=== PATIENT | female | born 1945 | race Hispanic/Latino ===

== ENCOUNTER 2017-10-29 13:38 | Inpatient (IN) | payer MEDICARE ==
[~2017-10-29] VITALS: Ht 154.9 cm; Wt 101.7 kg
[2017-10-29] MEDS ORDERED: IPRATROPIUM/ALBUTEROL SULFATE 3 ML SOLUTION IH ONE (14:23)
[2017-10-29] MEDS ORDERED: METHYLPREDNISOLONE SOD SUCC 40MG/ML 1ML ONE (14:24)
[2017-10-29 14:27] LABS: BASOPHILS % (AUTO) 0.7 % (0.0-5.0); EOSINOPHILS % (AUTO) 1.4 % (0.0-8.0); HEMATOCRIT 36.5 % (36-48); LYMPHOCYTES % (AUTO) 9.6 % (21.0-51.0); MEAN CORPUSCULAR HEMOGLOBIN 27.3 pg (27.0-33.0); MEAN CORPUSCULAR HGB CONC 32.8 g/dL (32.0-36.0); MEAN CORPUSCULAR VOLUME 83.1 fL (79-99); MONOCYTES % (AUTO) 6.8 % (3.0-13.0); NEUTROPHILS % (AUTO) 81.5 % (40.0-77.0); PLATELET COUNT (AUTO) 244 K/uL (130-400); RED BLOOD CELL COUNT(AUTO) 4.39 MIL/uL (4.00-5.50); RED CELL DISTRIBUTION WIDTH 14.9 % (11.0-15.5)
[2017-10-29 14:40] LABS: CREATININE 0.9 mg/dL (0.5-1.5); POTASSIUM 4.1 mmol/L (3.5-5.1)
[2017-10-29 14:52] LABS: RAPID GROUP A STREP NEGATIVE (NEGATIVE)
[2017-10-29 14:55] LABS: ALBUMIN 3.6 g/dL (3.5-5.0); BILIRUBIN,TOTAL 0.4 mg/dL (0.2-1.0); CREATINE KINASE MB 1.5 ng/mL (0.5-3.6); TOTAL PROTEIN, SERUM 7.8 g/dL (6.0-8.3)
[2017-10-29 15:35] LABS: APPEARANCE,URINE CLEAR (CLEAR); BILIRUBIN,URINE NEGATIVE (NEGATIVE); COLOR,URINE YELLOW (YELLOW); GLUCOSE, URINE (UA) NEGATIVE (NEGATIVE); KETONES,URINE NEGATIVE (NEGATIVE); LEUKOCYTE ESTERASE ,URINE NEGATIVE (NEGATIVE); NITRATE,URINE NEGATIVE (NEGATIVE); OCCULT BLOOD,URINE NEGATIVE (NEGATIVE); PROTEIN,URINE NEGATIVE (NEGATIVE); UROBILINOGEN,URINE 0.2 mg/dL (0.2-1.0)
[2017-10-29] MEDS ORDERED: ALBUTEROL SULFATE 0.083% 2.5 MG/3 ML INH IH ONE (17:19)
[2017-10-29 19:10] VITALS: BP 124/72
[2017-10-29] MEDS: AZITHROMYCIN 500MG+NS 250ML 250 ML IV SCH (21:49)
[2017-10-29] MEDS: METHYLPREDNISOLONE SOD SUCC 125MG/2ML VIAL IVP SCH (21:49)
[2017-10-29] MEDS: IPRATROPIUM/ALBUTEROL SULFATE 3 ML SOLUTION IH SCH (23:15)
[2017-10-29 23:47] VITALS: BP 149/63
[2017-10-30] VITALS (7 sets, daily range): BP systolic 136–178; BP diastolic 61–94
[2017-10-30] MEDS ORDERED: POTASSIUM CHLORIDE 10% ELIXIR 20 MEQ/15 ML UDCUP PO PRN (00:45)
[2017-10-30] MEDS ORDERED: POTASSIUM CHLORIDE 20 MEQ ERTAB PO PRN (00:45)
[2017-10-30] MEDS ORDERED: ACETAMINOPHEN 325 MG TAB PO PRN (00:45)
[2017-10-30] MEDS ORDERED: POTASSIUM CHLORIDE 20MEQ/100ML 100 ML IV PRN (00:45)
[2017-10-30] MEDS ORDERED: LIDOCAINE HCL-MPF 1% 2ML VIAL IVP PRN (00:45)
[2017-10-30] MEDS ORDERED: LACTULOSE 20 GM/30 ML UDCUP PO PRN (00:45)
[2017-10-30 06:06] LABS: BASOPHILS % (AUTO) 0.6 % (0.0-5.0); HEMATOCRIT 34.9 % (36-48); LYMPHOCYTES % (AUTO) 9.9 % (21.0-51.0); MEAN CORPUSCULAR HEMOGLOBIN 27.6 pg (27.0-33.0); MEAN CORPUSCULAR HGB CONC 33.4 g/dL (32.0-36.0); MEAN CORPUSCULAR VOLUME 82.6 fL (79-99); MONOCYTES % (AUTO) 1.5 % (3.0-13.0); PLATELET COUNT (AUTO) 278 K/uL (130-400); RED BLOOD CELL COUNT(AUTO) 4.22 MIL/uL (4.00-5.50)
[2017-10-30] MEDS: METHYLPREDNISOLONE SOD SUCC 125MG/2ML VIAL IVP SCH ×3 (06:21→21:14)
[2017-10-30 06:31] LABS: CARBON DIOXIDE 27 mmol/L (21-32); CHLORIDE 100 mmol/L (101-111); CREATINE KINASE MB 2.2 ng/mL (0.5-3.6); CREATINE KINASE, TOTAL 201 U/L (21-232); CREATININE 0.9 mg/dL (0.5-1.5); GLOMERULAR FILTR. RATE CALC 65 mL/min (>60); GLUCOSE,RANDOM 191 mg/dL (70-105); MYOGLOBIN 262 ng/mL (10-92); POTASSIUM 4.1 mmol/L (3.5-5.1); SODIUM SERUM 138 mmol/L (136-145); TROPONIN I < 0.04 ng/mL (0.00-0.06); UREA NITROGEN, BLOOD 14 mg/dL (7-18)
[2017-10-30] MEDS: IPRATROPIUM/ALBUTEROL SULFATE 3 ML SOLUTION IH SCH ×4 (07:08→23:58)
[2017-10-30] MEDS: FAMOTIDINE 20MG TAB 20 MG TAB PO SCH (09:49)
[2017-10-30] MEDS: HYDRALAZINE HCL 20 MG/ML VIAL IV PRN (12:05)
[2017-10-30] MEDS ORDERED: MORPHINE SULFATE 2 MG/ML 1ML SYG IVP PRN (13:30)
[2017-10-30 13:42] LABS: CREATINE KINASE MB 5.2 ng/mL (0.5-3.6); CREATINE KINASE, TOTAL 314 U/L (21-232); MYOGLOBIN 383 ng/mL (10-92); TROPONIN I < 0.04 ng/mL (0.00-0.06)
[2017-10-30] MEDS: AZITHROMYCIN 500MG+NS 250ML 250 ML IV SCH (21:14)
[2017-10-31 03:56] VITALS: BP 131/55
[2017-10-31 05:02] LABS: BASOPHILS % (AUTO) 0.2 % (0.0-5.0); HEMATOCRIT 35.1 % (36-48); LYMPHOCYTES % (AUTO) 4.2 % (21.0-51.0); MEAN CORPUSCULAR HEMOGLOBIN 27.9 pg (27.0-33.0); MEAN CORPUSCULAR HGB CONC 33.4 g/dL (32.0-36.0); MEAN CORPUSCULAR VOLUME 83.6 fL (79-99); NEUTROPHILS % (AUTO) 93.6 % (40.0-77.0); PLATELET COUNT (AUTO) 312 K/uL (130-400); RED CELL DISTRIBUTION WIDTH 15.1 % (11.0-15.5); WHITE BLOOD COUNT (AUTO) 11.2 K/uL (4.8-10.8)
[2017-10-31 05:30] LABS: CREATININE 1.3 mg/dL (0.5-1.5); POTASSIUM 4.1 mmol/L (3.5-5.1)
[2017-10-31] MEDS: METHYLPREDNISOLONE SOD SUCC 125MG/2ML VIAL IVP SCH (05:49)
[2017-10-31] MEDS ORDERED: LISI10TA7 PO (05:53)
[2017-10-31] MEDS ORDERED: SYMB8060 IH (05:53)
[2017-10-31] MEDS ORDERED: BUDESONIDE 0.5 MG/2 ML INH IH SCH (06:00)
[2017-10-31] MEDS ORDERED: ESOM40CA PO (06:23)
[2017-10-31] MEDS ORDERED: FLU VACC QS2017-18 36MOS UP/PF 60 MCG/0.5 ML ML IM ONE (06:30)
[2017-10-31] MEDS: IPRATROPIUM/ALBUTEROL SULFATE 3 ML SOLUTION IH SCH ×4 (06:51→23:45)
[2017-10-31] MEDS: PANTOPRAZOLE SODIUM 40 MG TABLET.DR PO SCH (07:30)
[2017-10-31 08:00] VITALS: BP 141/63
[2017-10-31] MEDS: FAMOTIDINE 20MG TAB 20 MG TAB PO SCH (08:44)
[2017-10-31] MEDS: LISINOPRIL 10 MG TABLET PO SCH (08:55)
[2017-10-31 12:00] VITALS: BP 137/69
[2017-10-31] MEDS ORDERED: IOPAMIDOL-370 100 ML VIAL IV ONE (12:55)
[2017-10-31 16:00] VITALS: BP 151/113
[2017-10-31] MEDS: BUDESONIDE 0.5 MG/2 ML INH IH SCH (19:17)
[2017-10-31 20:00] VITALS: BP 140/69
[2017-10-31] MEDS: PREDNISONE 20 MG TABLET PO SCH (20:24)
[2017-10-31] MEDS: AZITHROMYCIN 500MG+NS 250ML 250 ML IV SCH (20:24)
[2017-10-31 23:41] VITALS: BP 141/72
[2017-11-01 03:38] VITALS: BP 138/82
[2017-11-01 04:45] LABS: BASOPHILS % (AUTO) 0.1 % (0.0-5.0); HEMATOCRIT 34.7 % (36-48); LYMPHOCYTES % (AUTO) 6.7 % (21.0-51.0); MEAN CORPUSCULAR HEMOGLOBIN 27.3 pg (27.0-33.0); MEAN CORPUSCULAR VOLUME 82.9 fL (79-99); MONOCYTES % (AUTO) 4.2 % (3.0-13.0); NUCLEATED RED BLOOD CELLS 0.1 % (0.0-0.19); PLATELET COUNT (AUTO) 330 K/uL (130-400); RED BLOOD CELL COUNT(AUTO) 4.19 MIL/uL (4.00-5.50); RED CELL DISTRIBUTION WIDTH 14.9 % (11.0-15.5)
[2017-11-01 04:58] LABS: CREATININE 1.3 mg/dL (0.5-1.5)
[2017-11-01] MEDS: IPRATROPIUM/ALBUTEROL SULFATE 3 ML SOLUTION IH SCH ×3 (06:06→18:47)
[2017-11-01] MEDS: BUDESONIDE 0.5 MG/2 ML INH IH SCH ×2 (06:09→18:58)
[2017-11-01] MEDS: PANTOPRAZOLE SODIUM 40 MG TABLET.DR PO SCH (06:18)
[2017-11-01] MEDS ORDERED: FLU VACC QS2017-18 36MOS UP/PF 60 MCG/0.5 ML ML IM ONE (06:20)
[2017-11-01 08:00] VITALS: BP 156/73
[2017-11-01] MEDS: FAMOTIDINE 20MG TAB 20 MG TAB PO SCH (09:00)
[2017-11-01] MEDS: LISINOPRIL 10 MG TABLET PO SCH (09:00)
[2017-11-01] MEDS: PREDNISONE 20 MG TABLET PO SCH (09:00)
[2017-11-01] MEDS ORDERED: AZIT500T4 PO (10:04)
[2017-11-01] MEDS ORDERED: PRED20TA3 PO (10:04)
[2017-11-01 11:00] VITALS: BP 148/64
[2017-11-01] MEDS ORDERED: REGADENOSON 0.4 MG/5 ML PF SYG IVP SCH (15:00)
[2017-11-01 17:45] VITALS: BP 126/88
[2017-11-01 19:00] VITALS: BP 134/71
[2017-11-01] MEDS: AZITHROMYCIN 500MG+NS 250ML 250 ML IV SCH (21:13)
[2017-11-01 23:00] VITALS: BP 130/72
[2017-11-02] MEDS: IPRATROPIUM/ALBUTEROL SULFATE 3 ML SOLUTION IH SCH ×5 (00:26→23:40)
[2017-11-02 04:37] VITALS: BP 117/71
[2017-11-02] MEDS: BUDESONIDE 0.5 MG/2 ML INH IH SCH ×2 (06:00→19:42)
[2017-11-02] MEDS: PANTOPRAZOLE SODIUM 40 MG TABLET.DR PO SCH (07:34)
[2017-11-02 08:00] VITALS: BP 153/72
[2017-11-02] MEDS: PREDNISONE 20 MG TABLET PO SCH (08:39)
[2017-11-02] MEDS: FAMOTIDINE 20MG TAB 20 MG TAB PO SCH (08:40)
[2017-11-02] MEDS: LISINOPRIL 10 MG TABLET PO SCH (08:40)
[2017-11-02 11:00] VITALS: BP 141/80
[2017-11-02 16:00] VITALS: BP 158/73
[2017-11-02 19:00] VITALS: BP 145/79
[2017-11-02] MEDS: AZITHROMYCIN 500MG+NS 250ML 250 ML IV SCH (20:46)
[2017-11-02 23:00] VITALS: BP 151/81
[2017-11-03] VITALS (8 sets, daily range): BP systolic 119–162; BP diastolic 50–92
[2017-11-03] MEDS: IPRATROPIUM/ALBUTEROL SULFATE 3 ML SOLUTION IH SCH ×3 (06:50→18:00)
[2017-11-03] MEDS: BUDESONIDE 0.5 MG/2 ML INH IH SCH ×2 (07:01→12:26)
[2017-11-03] MEDS ORDERED: MORPHINE SULFATE 4 MG/1ML SYG ONE ×2 (09:36→23:06)
[2017-11-03] MEDS: LISINOPRIL 10 MG TABLET PO SCH (09:46)
[2017-11-03] MEDS: PREDNISONE 20 MG TABLET PO SCH (09:46)
[2017-11-03] MEDS: FAMOTIDINE 20MG TAB 20 MG TAB PO SCH (09:47)
[2017-11-03] MEDS: PANTOPRAZOLE SODIUM 40 MG TABLET.DR PO SCH (09:47)
[2017-11-03] MEDS: HYDRALAZINE HCL 20 MG/ML VIAL IV PRN (09:48)
[2017-11-03] MEDS ORDERED: NITROGLYCERIN 0.4 MG SL TAB SL PRN ×2 (10:15→16:45)
[2017-11-03] MEDS ORDERED: ATOR20TA65 PO (10:26)
[2017-11-03] MEDS ORDERED: AEC81 PO (10:26)
[2017-11-03] MEDS: ISOSORBIDE MONO 30MG TAB SR PO SCH (10:49)
[2017-11-03] MEDS: ASPIRIN 81 MG EC TAB PO SCH (10:49)
[2017-11-03] MEDS ORDERED: IOPAMIDOL-370 75 ML VIAL IV ONE (15:07)
[2017-11-03] MEDS ORDERED: BIVALIRUDIN 250 MG/VIAL IV ONE (15:07)
[2017-11-03] MEDS ORDERED: IOPAMIDOL-370 100 ML VIAL IV ONE (15:07)
[2017-11-03] MEDS ORDERED: LIDOCAINE HCL 2% 20ML ONE (15:08)
[2017-11-03] MEDS ORDERED: NITROGLYCERIN 50 MG/D5% WATER 1 BOT ONE (15:08)
[2017-11-03] MEDS ORDERED: FENTANYL CITRATE PF 50 MCG/1 ML 2ML VIAL ONE (15:08)
[2017-11-03] MEDS ORDERED: MIDAZOLAM HCL 1 MG/ML 2ML VIAL ONE (15:08)
[2017-11-03 15:19] LABS: INR 0.98 (0.85-1.15); PARTIAL THROMBOPLASTIN TIME 26.1 SEC (26.3-35.5); PROTHROMBIN TIME 10.3 SEC (9.6-11.6)
[2017-11-03] MEDS ORDERED: SODIUM CHLORIDE 0.9% 1000ML 1,000 ML IV SCH (16:45)
[2017-11-03] MEDS ORDERED: METOPROLOL TARTRATE 1 MG/ML 5ML VIAL IV PRN (16:45)
[2017-11-03] MEDS ORDERED: ISOS60TA4 PO (17:00)
[2017-11-03] MEDS: AZITHROMYCIN 500MG+NS 250ML 250 ML IV SCH (20:59)
[2017-11-03] MEDS ORDERED: ATORVASTATIN CALCIUM 20 MG TABLET PO SCH (21:00)
[2017-11-04] MEDS: IPRATROPIUM/ALBUTEROL SULFATE 3 ML SOLUTION IH SCH ×3 (00:10→11:17)
[2017-11-04 00:20] VITALS: BP 135/77
[2017-11-04 04:37] VITALS: BP 152/79
[2017-11-04] MEDS: BUDESONIDE 0.5 MG/2 ML INH IH SCH (06:47)
[2017-11-04] MEDS: PANTOPRAZOLE SODIUM 40 MG TABLET.DR PO SCH (07:20)
[2017-11-04 08:00] VITALS: BP 152/71
[2017-11-04] MEDS: LISINOPRIL 10 MG TABLET PO SCH (09:47)
[2017-11-04] MEDS: ISOSORBIDE MONO 30MG TAB SR PO SCH (09:47)
[2017-11-04] MEDS: ASPIRIN 81 MG EC TAB PO SCH (09:47)
[2017-11-04] MEDS: FAMOTIDINE 20MG TAB 20 MG TAB PO SCH (09:47)
[2017-11-04] MEDS: PREDNISONE 20 MG TABLET PO SCH (09:47)
[2017-11-04 12:00] VITALS: BP 159/80
[2017-11-04] MEDS ORDERED: BUDESONIDE 0.5 MG/2 ML INH IH SCH (21:00)
== END 2017-11-04 17:50 | disposition home or self-care (01) | DRG 286 ==
LOC: EDH 13:38 → OBSVTOIN 18:15 → EDHIP 18:15 → 3CH 18:55
PROVIDERS: ADMIT Internal Medicine; ATTEND Internal Medicine
PROC: 4A023N7 Measurement of Cardiac Sampling and Pressure, Left Heart, Percutaneous Approach (ICD-10-PCS; principal; 2017-10-29)
PROC: B2151ZZ Fluoroscopy of Left Heart using Low Osmolar Contrast (ICD-10-PCS; 2017-10-29)
PROC: B2111ZZ Fluoroscopy of Multiple Coronary Arteries using Low Osmolar Contrast (ICD-10-PCS; 2017-10-29)
PROC: 3E0234Z Introduction of Serum, Toxoid and Vaccine into Muscle, Percutaneous Approach (ICD-10-PCS; 2017-10-29)
DX: I25.118 Atherosclerotic heart disease of native coronary artery with other forms of angina pectoris (principal); I50.31 Acute diastolic (congestive) heart failure; J44.0 Chronic obstructive pulmonary disease with (acute) lower respiratory infection; J44.1 Chronic obstructive pulmonary disease with (acute) exacerbation; J45.901 Unspecified asthma with (acute) exacerbation; Z68.41 Body mass index [BMI] 40.0-44.9, adult; J98.11 Atelectasis; J20.9 Acute bronchitis, unspecified; I11.0 Hypertensive heart disease with heart failure; E66.9 Obesity, unspecified; E78.5 Hyperlipidemia, unspecified; Z91.14 Patient's other noncompliance with medication regimen; Z87.891 Personal history of nicotine dependence; Z88.8 Allergy status to other drugs, medicaments and biological substances; Z90.49 Acquired absence of other specified parts of digestive tract; Z23 Encounter for immunization; Z82.49 Family history of ischemic heart disease and other diseases of the circulatory system
CPT/HCPCS: 36415; 71046; 71275; 78452; 80048; 80053; 81003; 82550; 82553; 83605; 83874; 83880; 84484; 85025; 85610; 85730; 87804; 87880; 93005; 93017; 93306; 93458; 94640; 94664; 94760; 96374; A9500; C1769; C1894; G0008; J0360; J0456; J0583; J1644; J2250; J2270; J2785; J2920; J2930; J3010; J3490; Q2038; Q9967

== ENCOUNTER 2025-09-24 22:18 | Emergency (ER) | payer MEDICARE ==
[~2025-09-24] VITALS: Ht 160 cm; Wt 90.7 kg
--- NOTE | 2025-09-24 22:44 | NUR ---
PT CARE ASSUMED AT THIS TIME
--- NOTE | 2025-09-24 22:45 | ERN ---
General Chief Complaint: Chest Pain Stated Complaint: CHEST PAIN Time Seen by MD: 22:22 History of Present Illness Initial Comments 80-year-old female history of hypertension, diabetes, hyperlipidemia, coronary artery disease here for evaluation of chest pain. As per EMS who was at bedside, patient had an episode of chest pain at rest while watching TV about 1 hour prior to arrival. She took aspirin which mildly relieved the pain and called EMS for transportation to the emergency room. EN route patient was noted to have no chest pain. She has no chest pain here at this time. No fever no cough no shortness a breath. No vomiting or diarrhea. No palpitations. Allergies: Coded Allergies: cephalexin (Verified Allergy, Unknown, 10/29/17) Home Meds Active Scripts Losartan Potassium (Cozaar) 25 Mg Tablet, 25 MG PO BID for 30 Days, #60 TAB 2 Refills Prov:REYNOLD CLOUD MD 08/19/25 Atorvastatin Calcium (LIPITOR) 40 Mg Tablet, 40 MG PO HS for 30 Days, #30 TAB 2 Refills Prov:REYNOLD CLOUD MD 08/19/25 Aspirin (ASPIRIN 81 MG ECTAB) 81 Mg Ectab, 81 MG PO DAILY for 30 Days, #30 TAB.EC 2 Refills Prov:REYNOLD CLOUD MD 08/19/25 Reported Medications Albuterol Sulfate (Albuterol Sulfate) 2.5 Mg/0.5 Ml Vial.neb, 2.5 MG IH TID PRN for SHORTNESS OF BREATH/WHEEZING, INH 08/15/25 Mometasone/Formoterol (Dulera 100 Mcg/5 Mcg Inhaler) 100 Mcg-5 Mcg/Actuation Hfa.aer.ad, 1 PUFF IH AM for 30 Days, #13 GM 0 Refills 08/15/25 Baclofen (Baclofen) 10 Mg Tablet, 1 TAB PO TID PRN for PAIN LEVEL 1 TO 5 for 30 Days, #90 TAB 0 Refills 08/15/25 Isosorbide Dinitrate (Isosorbide Dinitrate) 30 Mg Tablet, 1 TAB PO DAILY for chest pain for 30 Days, #30 TAB 0 Refills 08/15/25 Ranolazine (RANEXA) 500 Mg Tab.er.12h, 500 MG PO BID, TAB 08/15/25 Montelukast Sodium (Montelukast Sodium) 10 Mg Tablet, 1 TAB PO HS for 30 Days, #30 TAB 0 Refills 08/15/25 Furosemide (Lasix 20Mg Tab) 20 Mg Tablet, 1 TAB PO DAILY for 30 Days, #30 TAB 0 Refills 08/15/25 Esomeprazole Magnesium (Nexium) 40 Mg Capsule.dr, 40 MG PO DAILY, CAP 10/31/17 Past Medical History Past Medical History: Arthritis, High Cholesterol, Hypertension Medical History Other: OBESE Past Surgical History: Unknown Female( History) History: Not Applicable Cardiovascular: (+) chest pain Review of Systems: was completed, & the rest were negative. Physical Exam Physical Exam Dictation GENERAL APPEARANCE NAD, activity normal for age, well developed/ well nourished, no cyanosis, pallor, or diaphoresis. EYES lids/conjunctiva normal. EARS/NOSE/THROAT Mucous membranes moist, nares normal, lips/teeth normal uvula midline without oral pharyngeal erythema, exudate or swelling TMs normal bilaterally. No lymphangitis/lymphedema. HEAD/NECK normocephalic atraumatic, no facial trauma, neck is supple. RESPIRATORY respiratory effort normal, speaks in full sentences, no tripod position, no accessory muscle use. Lungs clear to auscultation without rhonchi, wheezes, rales CARDIAC Regular rate and rhythm, no edema. ABDOMINAL Soft, ND/NT. No evidence of fluid wave. No pulsatile masses on exam, rebound tenderness, Diana sign or pain over Mcburney's point. MUSCLES/EXTREMITIES No abnormal range of motion, no swelling. SKIN Warm, pink and dry. No rashes, dermatoses, petechiae or lesions. NEUROLOGICAL Speech is clear and appropriate. Normal level of consciousness. Gait and coordination are normal. 5/5 strength in all extremities. PSYCH Normal mood and affect. Judgement/competence is appropriate Results Laboratory and Microbiology Lab and Micro Result Laboratory Tests Test 09/24/25 23:12 09/24/25 23:55 09/25/25 00:03 White Blood Count 6.3 K/uL (4.8-10.8) Red Blood Count 4.28 MIL/uL (4.00-5.50) Hemoglobin 12.5 g/dL (12.0-16.0) Hematocrit 37.5 % (36-48) Mean Corpuscular Volume 87.6 fL (79-99) Mean Corpuscular Hemoglobin 29.2 pg (27.0-33.0) Mean Corpuscular Hemoglobin Concent 33.3 g/dL (32.0-36.0) Red Cell Distribution Width 13.9 % (11.0-15.5) Platelet Count 200 K/uL (130-400) Mean Platelet Volume 9.6 fL (7.5-10.5) Immature Granulocyte % (Auto) 0.3 % (0-1) Neutrophils (%) (Auto) 70.5 % (40.0-77.0) Lymphocytes (%) (Auto) 20.6 % (21.0-51.0) L Monocytes (%) (Auto) 7.5 % (3.0-13.0) Eosinophils (%) (Auto) 0.8 % (0.0-8.0) Basophils (%) (Auto) 0.3 % (0.0-5.0) Neutrophils # (Auto) 4.4 K/uL (1.8-7.7) Lymphocytes # (Auto) 1.3 K/uL (1.0-4.8) Monocytes # (Auto) 0.5 K/uL (0.1-1.0) Eosinophils # (Auto) 0.05 K/uL (0.00-0.70) Basophils # (Auto) 0.02 K/uL (0.00-0.20) Absolute Immature Granulocyte (auto 0.02 K/uL (0-1) Nucleated Red Blood Cells 0.0 % (0.0-0.19) Sodium Level 142 mmol/L (136-145) Potassium Level 3.4 mmol/L (3.5-5.1) L Chloride Level 104 mmol/L (101-111) Carbon Dioxide Level 30 mmol/L (21-32) Blood Urea Nitrogen 18 mg/dL (7-18) Creatinine 0.9 mg/dL (0.5-1.0) Glomerular Filtration Rate Calc 65 mL/min (>90) Random Glucose 175 mg/dL (70-105) H Lactic Acid Level 1.8 mmol/L (0.8-2.5) Total Calcium 8.7 mg/dL (8.5-10.1) Total Bilirubin 0.3 mg/dL (0.2-1.0) Direct Bilirubin 0.1 mg/dL (0.0-0.3) Aspartate Amino Transf (AST/SGOT) 16 U/L (10-37) Alanine Aminotransferase (ALT/SGPT) 16 U/L (12-78) Alkaline Phosphatase 66 U/L (50-136) Troponin I High Sensitivity 14 ng/L (4-50) 14 ng/L (4-50) B-Type Natriuretic Peptide 43 pg/mL (0-100) Total Protein 6.6 g/dL (6.0-8.3) Albumin 3.0 g/dL (3.5-5.0) L Urine Color YELLOW (YELLOW) Urine Appearance CLOUDY (CLEAR) H Urine pH 5.5 (5.0-8.0) Urine Specific [place] 1.027 (1.001-1.031) Urine Protein 30 mg/dL (NEGATIVE) H Urine Glucose (UA) NEGATIVE mg/dL (NEGATIVE) Urine Ketones NEGATIVE mg/dL (NEGATIVE) Urine Occult Blood NEGATIVE (NEGATIVE) Urine Nitrate NEGATIVE (NEGATIVE) Urine Bilirubin NEGATIVE mg/dL (NEGATIVE) Urine Urobilinogen 2.0 mg/dL (0.2-1.0) H Urine Leukocyte Esterase 75 [place]/uL (NEGATIVE) H Urine RBC 2-5 /HPF (0-1) H Urine WBC 11-25 /HPF (0-1) H Urine Squamous Epithelial Cells MANY /HPF (0-2) Urine Bacteria RARE /HPF (None Seen) MDM 80-year-old female here for evaluation of chest pain. That she has been since resolved however we will still get a cardiac workup to rule out other pathologies. Disposition pending results of labs and imaging. Troponin x2 negative. D/c home. pt asymptomatic 3 points Low Score (0-3 points) Risk of MACE of 0.9-1.7%. ED Course Orders Procedure Category Date Status Time Lactic Acid LAB 09/24/25 Complete 22:22 Troponin I High LAB 09/24/25 Complete Sensitivity 22:22 Urinalysis Profile LAB 09/24/25 Complete 22:22 Hepatic Function Panel LAB 09/24/25 Complete 22:22 Cbc With Differential LAB 09/24/25 Complete 22:22 Basic Metabolic Panel LAB 09/24/25 Complete 22:22 12 Lead Ekg Tracing- EKG 09/24/25 Logged Technical 22:22 Chest 1vw RAD 09/24/25 Resulted 22:22 B-Type Natriuretic LAB 09/24/25 Complete Peptide 22:42 Troponin I High LAB 09/24/25 Complete Sensitivity 23:55 Culture Urine CRISTINA 09/25/25 In Process 00:17 Vital Signs Date Time Temp Pulse Resp B/P (MAP) Pulse Ox O2 Delivery O2 Flow Rate FiO2 09/25/25 00:13 72 22 152/66 95 Room Air* 0 21 09/24/25 22:50 98.1 80 17 128/46 95 Room Air* 0 21 09/24/25 22:25 98.1 85 16 151/59 94 Room Air 0 DX & DISP Disposition: Discharge Departure Impression: Primary Impression: Chest pain Additional Impression: Hypokalemia Condition: Stable Referrals: RANGEL TATE DO (PCP) ANA MOODY MD Sep 24, 2025 22:45
--- NOTE | 2025-09-24 23:13 | HMCIMG ---
EXAM: CR Chest, 1 view CLINICAL HISTORY: Chest pain. COMPARISON: 08/15/2025. FINDINGS: The lungs show no infiltrates or other acute findings. Mild bibasilar atelectasis. No pleural effusion or pneumothorax. The cardiomediastinal silhouette is within normal limits. No acute osseous abnormality. Mild scoliosis. Degenerative osseous changes. Mild osteopenia. IMPRESSION: No acute cardiopulmonary process is evident. Compared to the prior study, there is no significant interval change. /[place]
[2025-09-24 23:21] LABS: IMMATURE GRANULOCYTE ABSOLUTE 0.02 K/uL (0-1); NUCLEATED RED BLOOD CELLS 0.0 % (0.0-0.19); PLATELET COUNT (AUTO) 200 K/uL (130-400); RED BLOOD CELL COUNT(AUTO) 4.28 MIL/uL (4.00-5.50); RED CELL DISTRIBUTION WIDTH 13.9 % (11.0-15.5); WHITE BLOOD COUNT (AUTO) 6.3 K/uL (4.8-10.8)
[2025-09-24 23:33] LABS: CREATININE 0.9 mg/dL (0.5-1.0); GLOMERULAR FILTR. RATE CALC 65.0 mL/min (>90); GLUCOSE,RANDOM 175.0 mg/dL (70-105); SODIUM SERUM 142.0 mmol/L (136-145); UREA NITROGEN, BLOOD 18.0 mg/dL (7-18)
[2025-09-24 23:37] LABS: ASPARTATE AMINOTRANSFERASE 16.0 U/L (10-37); TOTAL PROTEIN, SERUM 6.6 g/dL (6.0-8.3)
[2025-09-25 00:16] LABS: APPEARANCE,URINE CLOUDY (CLEAR); GLUCOSE, URINE (UA) NEGATIVE (NEGATIVE); LEUKOCYTE ESTERASE ,URINE 75 Leu/uL (NEGATIVE); NITRATE,URINE NEGATIVE (NEGATIVE); OCCULT BLOOD,URINE NEGATIVE (NEGATIVE)
[2025-09-25 00:17] LABS: ADD UA MICROSCOPIC YES
[2025-09-25 00:21] LABS: SQUAMOUS EPITHELIAL CELL,UR MANY /HPF (0-2)
[2025-09-25] MEDS: PoTASSium chloRIDE 20MEQ ER 20 MEQ ERTAB PO ONE (01:31)
[2025-09-25 01:33] VITALS: BP 150/63; PULSE 75; RESP 20; TEMP 98.1; O2SAT 95
--- NOTE | 2025-09-25 06:54 | EKG ---
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
== END 2025-09-25 01:46 | disposition home or self-care (01) ==
LOC: EDH 22:18
DX: R07.9 Chest pain, unspecified (principal); E87.6 Hypokalemia; E11.9 Type 2 diabetes mellitus without complications; E78.00 Pure hypercholesterolemia, unspecified; I10 Essential (primary) hypertension; E66.9 Obesity, unspecified; I25.10 Atherosclerotic heart disease of native coronary artery without angina pectoris; M19.90 Unspecified osteoarthritis, unspecified site; Z88.1 Allergy status to other antibiotic agents; Z79.899 Other long term (current) drug therapy; Z79.82 Long term (current) use of aspirin; Z79.51 Long term (current) use of inhaled steroids
CPT/HCPCS: 36415; 71045; 80048; 80076; 81001; 83605; 83880; 84484; 85025; 87086; 93005; 99285